=== PATIENT | female | born 1930 | race Caucasian/White ===

== ENCOUNTER 2016-07-16 11:03 | Outpatient (CLI) | payer MEDICARE ==
[~2016-07-16] VITALS: Ht 156.2 cm; Wt 72.0 kg
[2016-07-16 11:15] VITALS: BP 177/73; PULSE 63; RESP 18; Ht 156.2 cm; Wt 72.0 kg
[2016-07-16] MEDS ORDERED: CHOL378P PO (11:20)
[2016-07-16] MEDS ORDERED: METF-406 PO (11:20)
[2016-07-16] MEDS ORDERED: METF500T3 PO (11:20)
[2016-07-16] MEDS ORDERED: HYDR-3012 PO (11:20)
--- NOTE | 2016-07-16 13:24 | CONS ---
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 There are no good surgical options available for her, unfortunately. The best course of action is rapid/expedited referral for metallic stent placement to alleviate the bile duct obstruction. During the same visit, if possible, would be best for the patient to have an endoscopic ultrasound evaluation of the area of the head of the pancreas. This would give us the advantage of being able to also visualize the undersurface of the right lobe of the liver and perhaps do the tissue diagnosis of the pancreas head and the liver at the same time, all within the same procedure which would give us both with therapeutic and diagnostic information. I doubt that the patient will ever be a surgical candidate, but we could consider reimaging her after her biliary obstruction has resolved for better understanding of her liver anatomy. I do agree that palliative-type chemotherapy plus or minus local radiation. We also have a role in her care, but if she has metastatic disease, the emphasis should be on quality of life. Note that the patient and family have a cruise planned in September or October of this year, and I certainly do believe that should be of high importance if the patient has metastatic disease, for the patient to be able to spend more time with the family. I explained all of this in detail with the patient and family and answered all their questions to the best of my ability. I also had phone conversations with Dr. Schmitz, Dr. Nam, as well as Dr. Whyte, and our Immediate plan is to have the patient undergo procedure with Dr. Whyte perhaps at [facility] with metallic stenting, endoscopic ultrasound, and at least overnight observation to make sure there are no issues with cholangitis. With above assessment, I have recommend the followin. Expedited endoscopic ultrasound with a metallic stent placement and possible biopsies and overnight observation to rule out ascending cholangitis as soon as possible. 2. Multidisciplinary Tumor Board presentation. 3. Consideration for systemic chemotherapy plus or minus local regional radiation. 4. Emphasis on quality of life. 5. Possible restaging, and if no mass seen in the liver, to then reconsider surgery at that time. Thank you again for allowing us to participate in the care of this very pleasant lady and her wonderful family. If there are any questions, please feel free to call me at [phone]. TOTAL VISIT TIME: 45 minutes of which more than half was spent in [id number] discussion with the patient, discussions with her daughters, as well as coordination of care between multiple physicians and providers. UPDATED CLINICAL SUMMARY: A very pleasant 86-year-old lady with comorbidities including BMI 29.5 as well as diabetes mellitus presenting with painless jaundice associated with a mass in the pancreas as well as possible involvement of liver. COMORBIDITIES: 1. BMI 29.5. 2. Diabetes mellitus since 2011. 3. Skin rash for 4 years. 4. Gastroesophageal reflux disease. 5. Status post hysterectomy. 6. Status post kidney stones. 7. Status post bilateral knee surgeries. 8. Status post shoulder replacement. 9. Status post cataracts. 10. Mother with history of breast and colon cancer. 11. History of bone cancer in her nephew. HISTORY OF PRESENT ILLNESS: The patient is a very pleasant 86-year-old lady with above-mentioned comorbidities whom we were kindly asked to consult regarding management of her newly discovered bile duct obstruction associated with the pancreas mass as well as possible involvement of the liver. She noted jaundice 1 or 2 weeks ago. She had never had symptoms such as this in the past and no major biliary problems in the past. She reported having significantly darkened urine and clear-colored stools. IMAGING: CT scan of abdomen and pelvis 07/06/2016 showed a 2.3 cm pancreatic head mass with bile duct dilatation even though the report mentions no obvious liver masses, and there appears to be a small 1 cm mass in segment 5 of the liver next to the gallbladder to my review. The patient's bilirubin was 7.4 in June and a CA 19-9 was 418. Note that she had not had any other procedures done. ALLERGIES: 1. IODINE. 2. IODINE-CONTAINING PRODUCTS. 3. SHELLFISH-DERIVED. MEDICATIONS: At home the patient is on: 1. Cholestyramine. 2. Hydroxyzine. 3. Metformin. 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 She does not report any smoking, drinking, or intravenous drug use. FAMILY HISTORY: As above with history of breast and colon cancer or ovarian cancer in the patient's mother as well as bone cancer in her nephew. No other major reported medical, surgical, or oncologic problems in the family. REVIEW OF SYSTEMS: Other than the above-mentioned, there are no other pertinent positives or pertinent negatives in a complete 14-point review of systems. PHYSICAL EXAMINATION: GENERAL: The patient appears to be a very pleasant lady of non- descent, appearing stated age, sitting in a chair comfortably and in no acute distress. She is obviously jaundiced. Her BMI is 29.5. VITAL SIGNS: Temperature 98.0, blood pressure 177/73, pulse 63, respiratory rate 18, pulse oximetry 99% on room air. HEENT: Normocephalic and atraumatic. Extraocular muscles and hearing are grossly intact bilaterally and symmetrically. Sclerae are jaundiced. Oral cavity is clear; oral mucosa appeared to be pink and moist. Dentition: poor. NECK: Supple. There is no lymphadenopathy or JVD. There is no submental, submandibular or supraclavicular lymphadenopathy. CHEST: Rises symmetrically with each breath; patient is breathing comfortably. There are no audible wheezes, rales or rhonchi on the gross exam. HEART: Pulse is regular and palpable on the right wrist. Capillary refill was normal. Carotid pulses are palpable bilaterally and symmetrically in the neck. EXTREMITIES: Lower extremities contain no pitting edema around the ankles bilaterally and symmetrically. ABDOMEN: Abdomen is soft, nontender and nondistended. There are no peritoneal signs or guarding. No evidence of ascites, organomegaly, caput medusae, engorged subcutaneous veins, or other abnormalities. SKIN: Appears to be pink and feels warm to touch. NEUROLOGIC: Awake, alert, and follows commands appropriately. LABORATORY VALUES: As above. IMAGING: As above. Note that I reviewed all the available pertinent images, and I agree in general with their overall reported findings with the exception of the small mass that I see in segment 5 of the liver. Dictated By: SHAD RODARTE/JIMMY Conf#: [id number] DID#: [id number] CC: Pato; Mick Walker; Gagan Nam; Nilson Schmitz;*EndCC* [facility]
== END 2016-07-16 17:08 | disposition home or self-care (01) ==
LOC: HPC 11:03
PROVIDERS: ATTEND Transplant Surgery
DX: C25.9 Malignant neoplasm of pancreas, unspecified (principal); E11.9 Type 2 diabetes mellitus without complications; K21.9 Gastro-esophageal reflux disease without esophagitis
CPT/HCPCS: G0463